=== PATIENT | female | born 1965 | race African-American/Black ===

== ENCOUNTER → 2017-02-17 | Outpatient (CLI) | payer SELFPAY ==
--- NOTE | 2017-02-17 08:58 | WOMENS IMAGING REPORT ---
EXAM DESCRIPTION: BILAT SCREENING MAMMO W/CAD COMPLETED DATE/TIME: 02/17/2017 7:47 am REASON FOR STUDY: ROUTINE BILATERAL SCREENING;Z12.31 Z13.9 ENCOUNTER FOR SCREENING, UNSPECIFIED COMPARISON: 02/08/2016 and 01/16/2015. TECHNIQUE: Standard craniocaudal and mediolateral oblique views of each breast recorded using Linktone[employer] l acquisition. LIMITATIONS: None. FINDINGS: RIGHT BREAST MASSES: No suspicious masses. CALCIFICATIONS: No new or suspicious calcifications. ARCHITECTURAL DISTORTION: None. DEVELOPING DENSITY: Questionable developing density in the central superior breast, located 8 cm from the nipple, seen on the MLO view only. ASYMMETRY: None noted. OTHER: No other significant findings. LEFT BREAST MASSES: No suspicious masses. CALCIFICATIONS: No new or suspicious calcifications. ARCHITECTURAL DISTORTION: None. DEVELOPING DENSITY: None. ASYMMETRY: None noted. OTHER: No other significant findings. Read with the assistance of CAD. .[facility] - R2 Cenova Version 1.3 .[facility] - R2 Cenova Version 1.3 .[facility] - R2 Cenova Version 2.4 .[facility] - R2 Cenova Version 2.4 .[facility] - R2 Video News Editor Version 9.2 IMPRESSION: Questionable developing density in the right breast. Stable mammographic appearance of the left breast. BREAST DENSITY: b. There are scattered areas of fibroglandular density. BIRAD: 0 Incomplete: Needs Additional Imaging Evaluation and/or prior Mammograms for Comparison. RECOMMENDATION: RECOMMENDED FOLLOW-UP: Recommend additional evaluation with compression views of the right breast and followup ultrasound if indicated. Recommend routine screening mammography of the l eft breast. The patient will be contacted for additional imaging. COMMENT: The patient has been notified of the results by letter per SA requirements. Additional no tification policies are in place for contacting patient with suspicious or incomplete findings. Quality ID #[id number]: The [employer] recommends an annual screening mammogram for women aged 40 years or over. This facility utilizes a reminder system to ensure that all patients receive reminder letters, and/or direct phone calls for appointments. This includes reminders for routine scr eening mammograms, diagnostic mammograms, or other Breast Imaging Interventions when appropriate. Th is patient will be placed in the appropriate reminder system. The [employer] (ACR) has developed recommendations for screening MRI of the breast s in certain patient populations, to be used in conjunction with mammography. Breast MRI surveillanc e may be appropriate for women with more than 20% lifetime risk of developing breast cancer as deter mined by genetic testing, significant family history of the disease, or history of mantle radiation f or Hodgkins Disease. ACR Practice Guidelines 2008. TECHNICAL DOCUMENTATION: FINDING NUMBER: (1) ASSESSMENT: (1) JOB ID: [id number] [employer]- All Rights Reserved
== END ==
LOC: WI 06:48
DX: Z12.31 Encounter for screening mammogram for malignant neoplasm of breast (principal)
CPT/HCPCS: 77067; G0202

== ENCOUNTER 2019-04-04 21:49 | Emergency (ER) | payer SELFPAY ==
--- NOTE | 2019-04-04 22:08 | ER Document Report ---
ED Medical Screen (RME) - General Chief Complaint: Mouth Injury Stated Complaint: FALL-MOUTH PAIN/LACERATION Time Seen by Provider: 04/04/19 22:05 Primary Care Provider: SONI FLORENTINO [Primary Care Provider] - Follow up as needed Mode of Arrival: Ambulatory Information source: Patient Notes: 53-year-old female presents emergency department with nasal injury, right wrist pain and dental injuries. Patient reports she was taking her dogs out they took off and she fell landing face first on concrete. Patient has lost a couple teeth. Laceration to her bottom lip. Complains of right wrist pain. Patient has history of high blood pressure. Denies taking anticoagulants. Denies nasal pain denies orbital pain I have greeted and performed a rapid initial assessment of this patient. A comprehensive ED assessment and evaluation of the patient, analysis of test results and completion of the medical decision making process will be conducted by additional ED providers. Dictation of this chart was performed using voice recognition software; therefore, there may be some unintended grammatical errors. TRAVEL OUTSIDE OF THE [place] IN LAST 30 DAYS: No Physical Exam - Vital signs Vitals: Pulse Resp BP Pulse Ox 93 18 150/85 H 99 04/04/19 21:59 04/04/19 21:59 04/04/19 21:59 04/04/19 21:59 Course - Vital Signs Vital signs: Temp Pulse Resp BP Pulse Ox 93 18 150/85 H 99 04/04/19 21:59 04/04/19 21:59 04/04/19 21:59 04/04/19 21:59 Doctor's Discharge - Discharge Referrals: SONI FLORENTINO [Primary Care Provider] - Follow up as needed
--- NOTE | 2019-04-04 22:36 | RADIOLOGY REPORT (SQ) ---
EXAM DESCRIPTION: XR WRIST 3 OR MORE VIEWS BILATERAL COMPLETED DATE/TME: 04/04/2019 22:06 CLINICAL HISTORY: 53 years, Female, fall pain COMPARISON: None. NUMBER OF VIEWS: Three TECHNIQUE: Frontal, oblique, and lateral radiographs of the right wrist were obtained LIMITATIONS: None. FINDINGS: Visualized is a comminuted intra-articular fracture involving the distal radius. Minimal, if any displacement is clearly identified. There are no additional osseous anomalies. IMPRESSION: Comminuted intra-articular fracture involving the distal radius. Minimal, if any displacement. copyright 2010 [employer]- All Rights Reserved
[2019-04-04] MEDS ORDERED: HYDROMORPHONE HCL INJ/PF 2 MG/ML AMPULE IV ONE (22:42)
[2019-04-04] MEDS ORDERED: ONDANSETRON HCL INJ/PF 4 MG/2 ML SDV IV ONE (22:42)
--- NOTE | 2019-04-04 23:25 | RADIOLOGY REPORT (SQ) ---
EXAM DESCRIPTION: CT MAXILLOFACIAL WITHOUT IV CONTRAST COMPLETED DATE/TME: 04/04/2019 22:42 CLINICAL HISTORY: 53 years, Female, face first into concrete, ?[place] fx? COMPARISON: None. TECHNIQUE: 296 Images stored on PACS. All CT scanners at this facility use dose modulation, iterative reconstruction, and/or weight based dosing when appropriate to reduce radiation dose to as low as reasonably achievable (ALARA). [facility]: Dose Right [facility]: CareDose [facility]: Dose Right [facility]: Teradose 4D [facility]: QuickoLabs LIMITATIONS: None. FINDINGS: The globes are intact. Limited evaluation of brain parenchyma is unremarkable. Soft tissue swelling superficial to the mandible and maxilla. . Minor mucosal thickening right maxillary sinus. Paranasal sinuses are otherwise well aerated. However, there is fracture deformity associated with the left maxilla extending to the midline without definitively crossing the midline. Absence of one of the left maxillary molars. IMPRESSION: Nondisplaced fracture deformity through the left maxilla. Adjacent soft tissue swelling of the mouth/lips. TECHNICAL DOCUMENTATION: Quality ID # [id number]: Final reports with documentation of one or more dose reduction techniques (e.g., Automated exposure control, adjustment of the mA and/or kV according to patient size, use of iterative reconstruction technique) copyright 2010 [employer]- All Rights Reserved
[2019-04-04 23:26] LABS: ABSOLUTE BASOPHILS # (AUTO) 0.1 10^3/uL (0.0-0.2); ABSOLUTE EOSINOPHILS # (AUTO) 0.1 10^3/uL (0.0-0.6); ABSOLUTE LYMPHOCYTES (AUTO) 2.1 10^3/uL (0.5-4.7); ABSOLUTE MONOCYTES (AUTO) 0.6 10^3/uL (0.1-1.4); ABSOLUTE NEUT (AUTO) 6.6 10^3/uL (1.7-8.2); BASOPHILS % (AUTO) 0.8 % (0-2); EOSINOPHILS % (AUTO) 1.3 % (0-6); HEMATOCRIT 38.8 % (36.0-47.0); HEMOGLOBIN 13.1 g/dL (12.0-15.5); LYMPHOCYTES % (AUTO) 22.5 % (13-45); MEAN CORPUSCULAR HEMOGLOBIN 27.7 pg (27.0-33.4); MEAN CORPUSCULAR HGB CONC 33.7 g/dL (32.0-36.0); MEAN CORPUSCULAR VOLUME 82 fl (80-97); MONOCYTES % (AUTO) 6.1 % (3-13); PLATELET COUNT 277 10^3/uL (150-450); RED BLOOD COUNT 4.72 10^6/uL (3.72-5.28); RED CELL DISTRIBUTION WIDTH 15.3 % (11.5-14.0); SEGMENTED NEUTROPHILS % (AUTO) 69.3 % (42-78); TOTAL CELLS COUNTED % (AUTO) 100 %; WHITE BLOOD COUNT 9.5 10^3/uL (4.0-10.5)
[2019-04-04 23:44] LABS: ALBUMIN 4.5 g/dL (3.5-5.0); ALKALINE PHOSPHATASE 83 U/L (38-126); ANION GAP 11 (5-19); ASPARTATE AMINO TRANSFERASE 28 U/L (14-36); BILIRUBIN,DIRECT 0.1 mg/dL (0.0-0.4); BILIRUBIN,TOTAL 0.2 mg/dL (0.2-1.3); BLOOD UREA NITROGEN 18 mg/dL (7-20); CALCIUM 9.8 mg/dL (8.4-10.2); CARBON DIOXIDE 30 mmol/L (22-30); CHLORIDE 96 mmol/L (98-107); GLUCOSE 98 mg/dL (75-110); POTASSIUM 3.5 mmol/L (3.6-5.0); TOTAL PROTEIN 7.8 g/dL (6.3-8.2)
--- NOTE | 2019-04-05 00:44 | ER Document Report ---
ED General - General Chief Complaint: Mouth Injury Stated Complaint: FALL-MOUTH PAIN/LACERATION Time Seen by Provider: 04/04/19 22:05 Primary Care Provider: [facility] [Primary Care Provider] - Follow up as needed Mode of Arrival: Ambulatory Notes: 53-year-old female presents emergency department after a fall. Patient was walking her dogs when the dogs pulled her over and she landed impacting her face and mouth against the concrete curb and also landed and injured her right hand. Patient denies LOC, neck pain, vomiting, taking blood thinners. States that she has a cut to her lower lip, her teeth are loose on her maxilla and that she thinks she may have lost a tooth but she could not find it. Also complains of pain to her right hand but denies numbness or tingling. TRAVEL OUTSIDE OF THE [place] IN LAST 30 DAYS: No - Related Data Allergies/Adverse Reactions: No Known Allergies Allergy (Verified 04/04/19 22:10) Past Medical History - General Information source: Patient - Social History Smoking Status: Never Smoker Chew tobacco use (# tins/day): No Frequency of alcohol use: None Drug Abuse: None Family History: Reviewed & Not Pertinent Patient has suicidal ideation: No Patient has homicidal ideation: No Review of Systems - Review of Systems Constitutional: No symptoms reported EENT: See HPI, Mouth pain, Dental problem Cardiovascular: No symptoms reported Respiratory: No symptoms reported Musculoskeletal: See HPI Skin: See HPI - Abrasions to upper lip. -: Yes All other systems reviewed and negative Physical Exam - Vital signs Vitals: Pulse Resp BP Pulse Ox 93 18 150/85 H 99 04/04/19 21:59 04/04/19 21:59 04/04/19 21:59 04/04/19 21:59 Interpretation: Hypertensive - Notes Notes: GENERAL: Alert, interacts well. Speech is somewhat muffled. HEAD: Abrasion to the upper lip, laceration to the lower lip. No other trauma to the head. EYES: Pupils equal, round and reactive to light, extraocular movements intact. ENT: Oral mucosa moist, tongue midline. Teeth 7, 8, 9 and 10 are loose, they are able to be wiggled in their sockets, there is a somewhat diagonal fracture to tooth #11, tooth #6 is missing. When palpating the mandible just above teeth 7 through 10 it is somewhat soft and I am concerned for possible fracture. NECK and BACK: Full range of motion, supple, trachea midline. No midline bony tenderness to palpation, no step-offs or deformities LUNGS: Clear to auscultation bilaterally, no wheezes, rales or rhonchi, no respiratory distress. HEART: Regular rate and rhythm, no murmurs, gallops, rubs. ABDOMEN: Soft, nontender, nondistended, bowel sounds present in all 4 quadrants. EXTREMITIES: Moves all 4 extremities spontaneously, tenderness to palpation over the right distal radius, some swelling, no gross deformity, sensation is intact, able to move her fingers, radial and dorsalis pedis pulses 2/4 bilaterally. No cyanosis. NEUROLOGICAL: Alert and oriented x3, cranial nerves II through XII grossly intact. PSYCH: Normal mood, normal affect. SKIN: Warm, Dry, abrasions noted to the upper lip, irregular vertical laceration to the buccal mucosa on the lower lip slightly left of midline, approximately 2 cm, contaminated with grit and gravel. There is swelling to the upper lip in the midline but no obvious laceration. Course - Re-evaluation Re-evalutation: 04/05/19 01:23 CBC unremarkable, CMP shows slightly low potassium at 3.5 otherwise unremarkable, wrist x-ray shows intra-articular comminuted fracture involving the distal radius with minimal displacement. This is splinted in position with a sugar tong splint. Facial bone CT was ordered due to concern over possible [place] fracture. It does show a fracture deformity associated with the left maxilla extending to the midline without definitively crossing of the midline. No comment was made regarding the teeth. I do not have access to oral surgery or facial surgery at this time. I did call and speak with the transfer center at [facility] who accepts the patient as a transfer to their ER, Dr. Mcclure is the trauma surgeon excepting the patient. I did also give a courtesy phone call to Dr. Boyer the ER physician at [facility] to let them know this patient would be arriving. Patient's lower lip laceration was not approximated as if she needs surgery later this evening it can be approximated while they are doing surgery with less pain to the patient. I did explain to the patient that if she does not end up needing surgery this evening they will need to repair her lip laceration at [facility]. Patient is agreeable to this plan. Patient's last tetanus shot was in 2013, does not need to be updated at this time. 04/05/19 02:26 Nursing has put a dressing over the patient's face that is covering her mouth however she is able to breathe without difficulty through her nose. Patient has been quite uncomfortable while she has been here trying to absorb the small but persistent amount of blood that is coming from her mouth by holding gauze to her mouth. Patient is more comfortable now that she has a gauze dressing over her mouth. - Vital Signs Vital signs: Temp Pulse Resp BP Pulse Ox 98.4 F 101 H 18 141/72 H 99 04/05/19 01:21 04/05/19 01:21 04/05/19 01:21 04/05/19 01:21 04/04/19 21:59 - Laboratory Result Diagrams: 04/04/19 23:20 04/04/19 23:20 Laboratory results interpreted by me: 04/04/19 04/04/19 23:20 23:20 RDW 15.3 H Sodium 136.7 L Potassium 3.5 L Chloride 96 L Procedures - Immobilization Right Wrist Pre-Proc Neuro Vasc Exam: Normal Immobilizer type: Sugar tong Performed by: RN Post-Proc Neuro Vasc Exam: Normal, Unchanged from pre-exam Alignment checked and good: Yes Discharge - Discharge Clinical Impression: Maxillary fracture Qualifiers: Encounter type: initial encounter Fracture type: closed Laterality: left Qualified Code(s): S02.40DA - Maxillary fracture, left side, initial encounter for closed fracture Radial fracture Qualifiers: Encounter type: initial encounter Radius location: distal Fracture type: closed Fracture morphology: other intra-articular Laterality: left Qualified Code(s): S52.572A - Other intraarticular fracture of lower end of left radius, initial encounter for closed fracture Lip laceration Qualifiers: Encounter type: initial encounter Qualified Code(s): S01.511A - Laceration without foreign body of lip, initial encounter Fall at home Qualifiers: Encounter type: initial encounter Qualified Code(s): W19.XXXA - Unspecified fall, initial encounter Tooth fracture Qualifiers: Encounter type: initial encounter Fracture type: open Qualified Code(s): S02.5XXB - Fracture of tooth (traumatic), initial encounter for open fracture Condition: Fair Disposition: [facility] Referrals: [facility]ALTH DEPT,[facility] [Primary Care Provider] - Follow up as needed
[2019-04-05 01:22] VITALS: BP 141/72
[2019-04-05] MEDS ORDERED: ONDANSETRON HCL INJ/PF 4 MG/2 ML SDV IV ONE (02:00)
== END 2019-04-05 02:53 ==
LOC: ER 21:49
DX: S02.5XXB Fracture of tooth (traumatic), initial encounter for open fracture (principal); S02.40DA Maxillary fracture, left side, initial encounter for closed fracture; S52.571A Other intraarticular fracture of lower end of right radius, initial encounter for closed fracture; M79.641 Pain in right hand; W17.89XA Other fall from one level to another, initial encounter; Y93.K1 Activity, walking an animal; Y92.008 Other place in unspecified non-institutional (private) residence as the place of occurrence of the external cause
CPT/HCPCS: 96376; 99284; 96374; 96375; 36415; 85025; 80053; 73110; 70486; 29125; L3650; J1170; J2405 ×2